=== PATIENT | male | born 1990 | race Caucasian/White ===

== ENCOUNTER 2021-06-12 17:40 | Emergency (ER) | payer BC, SELFPAY ==
[2021-06-12 17:46] VITALS: BP 183/83; PULSE 120; RESP 14; TEMP 36.7; O2SAT 97
[2021-06-12] MEDS: TETANUS,DIPHTHERIA,AC PERTUSSIS ADULT (0.5 ML) BOOSTRIX IM (19:17)
--- NOTE | 2021-06-12 20:56 | ED.GENADULT ---
HPI - General Adult General Chief complaint: Wound/Laceration Stated complaint: leg laceration Time Seen by Provider: 06/12/21 18:16 Source: patient Mode of arrival: ambulatory Limitations: no limitations History of Present Illness HPI narrative: Patient presents with chief complaint of laceration to the left lower leg that he sustained while taking out the trash and forgetting that it was a broken bowl in the bag. He reports bleeding to the area. Patient states he is not up-to-date on his tetanus. Patient denies any other injuries. Related Data Home Medications Medication Instructions Recorded Confirmed No Home Medications 06/12/21 06/12/21 Allergies Allergy/AdvReac Type Severity Reaction Status Date / Time codeine Allergy Mild Unknown Verified 06/12/21 18:36 Review of Systems Review of Systems: CONSTITUTIONAL: Denies fever, chills, or sweats. EYES: Denies visual changes, redness, or discharge. ENT: Denies rhinorrhea, congestion, sore throat, or otalgia. CARDIOVASCULAR: Denies chest pain, palpitations, or edema. RESPIRATORY: Denies cough or dyspnea. GASTROINTESTINAL: Denies abdominal pain, nausea, vomiting, or diarrhea. GENITOURINARY: Denies dysuria or hematuria. SKIN: Reports laceration denies rash or itching. MUSCULOSKELETAL: Denies back pain, joint pain, or myalgia. NEUROLOGIC: Denies headache, numbness, dizziness, or weakness. PSYCHIATRIC: Denies anxiety or depression. Exam Narrative: GENERAL: Well-appearing, well-nourished, and in no acute distress. HEAD: Normocephalic, atraumatic. EYES: PERRLA and EOMI. CHEST: No respiratory distress. No tachypnea. EXTREMITIES: Normal range of motion. No edema. SKIN: 11.5cm linear laceration to the right leg. Warm, dry, no rash. NEURO: No focal deficits. Alert and oriented x3. PSYCH: Normal mood and affect. Course Vital Signs Vital signs: Vital Signs Temperature 98.0 F 06/12/21 17:46 Pulse Rate 120 H 06/12/21 17:46 Respiratory Rate 14 06/12/21 17:46 Blood Pressure 183/83 H 06/12/21 17:46 Pulse Oximetry 97 06/12/21 17:46 Temperature 98.0 F 06/12/21 17:46 Pulse Rate 120 H 06/12/21 17:46 Respiratory Rate 14 06/12/21 17:46 Blood Pressure 183/83 H 06/12/21 17:46 Pulse Oximetry 97 06/12/21 17:46 Procedures Laceration Laceration 1: Site: lower extremity Side (If applicable): right Size (cm): 11.5 Description: linear Depth: simple, single layer Local Anesthetic: lidocaine 1% Amount of anesthesia used (mL): 10 ====== Skin Level ====== Skin layer closed with: nylon Size (cm): 3-0 Number of sutures: 15 Technique: simple, interrupted ====== Subcutaneous Layer ====== ====== Muscle Layer ====== ====== Tendon Layer ====== Medical Decision Making MDM Narrative Medical decision making narrative: Wound approximated well. Patient given wound care instructions. Patient instructed to follow-up to have sutures removed in approximately 10 to 14 days. Patient instructed to follow-up sooner if any signs of infection present. Patient has received a Tdap injection. He denies any other needs or concerns and is ready to be discharged at this time. Patient rates his pain prior to suturing 11/02. Vital Signs Vital Signs: Vital Signs Temperature 98.0 F 06/12/21 17:46 Pulse Rate 120 H 06/12/21 17:46 Respiratory Rate 14 06/12/21 17:46 Blood Pressure 183/83 H 06/12/21 17:46 Pulse Oximetry 97 06/12/21 17:46 Temperature 98.0 F 06/12/21 17:46 Pulse Rate 120 H 06/12/21 17:46 Respiratory Rate 14 06/12/21 17:46 Blood Pressure 183/83 H 06/12/21 17:46 Pulse Oximetry 97 06/12/21 17:46 Discharge Plan Discharge Clinical Impression: Laceration Patient Disposition: Home, Self-Care Condition: Improved Instructions: Antibiotic Form, Laceration (ED) Additional Instructions: Keep areas clean. Wash with antibacterial
[2021-06-12 21:22] VITALS: BP 146/76; PULSE 86; RESP 16; O2SAT 99
== END 2021-06-12 21:23 | disposition home or self-care (01) ==
PROVIDERS: Emergency Provider Emergency Medicine; PCP Nurse Practitioner
DX: S81.812A Laceration without foreign body, left lower leg, initial encounter (principal); Z23 Encounter for immunization; W25.XXXA Contact with sharp glass, initial encounter
CPT/HCPCS: 12001; 90471; 90715; 99282